=== PATIENT | female | born 1990 | race African-American/Black ===

== ENCOUNTER 2018-04-28 21:39 | Emergency (ER) | payer MEDICAID ==
[~2018-04-28] VITALS: Ht 160 cm; Wt 69.0 kg
[~2018-04-28 21:39] MED LIST: ALBUTEROL INHALER INH; BECL8.7A6 INH; MEDR150D9 IM
[2018-04-28 23:56] LABS: CLARITY URINE CLOUDY (CLEAR); COLOR URINE YELLOW (YELLOW); KETONES URINE NEGATIVE (NEGATIVE); LEUKOCYTE ESTERASE URINE 2+ (NEGATIVE); NITRITE URINE NEGATIVE (NEGATIVE); OCCULT BLOOD URINE 2+ (NEGATIVE); PH URINE 6.5 (4.5-8.0); PROTEIN URINE NEGATIVE (NEGATIVE); SPECIFIC GRAVITY URINE 1.015 (1.005-1.030)
[2018-04-29] MEDS ORDERED: KETOROLAC 60MG/2ML VIAL IM ONE (01:45)
[2018-04-29] MEDS ORDERED: CEFTRIAXONE SODIUM 1 G/VIAL IM ONE (03:15)
[2018-04-29] MEDS ORDERED: MORPHINE SULFATE 10 MG/ML CPJ IM ONE (03:15)
[2018-04-29] MEDS ORDERED: LIDOCAINE HCL/PF 1% 10 MG/ML 5ML VIAL IJ NR (03:30)
[2018-04-29] MEDS ORDERED: LIDOCAINE HCL 1% 20ML VIAL (Pyxis) INJ INFIL ONE (03:30)
[2018-04-29 05:23] VITALS: BP 103/46
== END 2018-04-29 05:24 | disposition home or self-care (01) ==
LOC: ER 22:10
DX: M25.511 Pain in right shoulder (principal); M79.601 Pain in right arm; N30.01 Acute cystitis with hematuria; R30.0 Dysuria; J45.909 Unspecified asthma, uncomplicated; F12.10 Cannabis abuse, uncomplicated; Z91.013 Allergy to seafood; Z88.9 Allergy status to unspecified drugs, medicaments and biological substances; Z79.899 Other long term (current) drug therapy; V03.90XA Pedestrian on foot injured in collision with car, pick-up truck or van, unspecified whether traffic or nontraffic accident, initial encounter; Y93.89 Activity, other specified; Y92.89 Other specified places as the place of occurrence of the external cause; Y99.8 Other external cause status
CPT/HCPCS: 29240; 51702; 73030; 73060; 73090; 81003; 81025; 87086; 96372; 99285; J0696; J1885; J2270; J3490; Z7610; 29125; A4565

== ENCOUNTER 2019-10-24 13:08 | Emergency (ER) | payer MEDICAID ==
[~2019-10-24] VITALS: Ht 162.6 cm; Wt 68.0 kg
[2019-10-24 13:16] VITALS: BP 129/50
[2019-10-24] MEDS ORDERED: ACETAMINOPHEN 325MG TABLET PO STA (16:46)
[2019-10-24] MEDS ORDERED: ONDANSETRON HCL 4MG/2ML INJ IV STA (16:46)
[2019-10-24] MEDS ORDERED: SODIUM CHLORIDE 0.9% 1,000 ML IV ONE (16:46)
[2019-10-24 17:17] LABS: BASOPHILS % 0.7 % (0.0-2.0); EOSINOPHILS % 4.5 % (0.0-5.0); HEMATOCRIT. 37.2 % (36.0-48.0); HEMOGLOBIN. 12.5 g/dL (12.0-16.0); LYMPHOCYTES % 49.1 % (20.0-50.0); MEAN CORPUSCULAR HEMOGLOBIN 30.9 pg (28.0-32.0); MEAN CORPUSCULAR VOLUME 92.1 fL (81.0-99.0); MEAN PLATELET VOLUME 8.4 fl (7.4-10.4); MONOCYTES % 7.3 % (2.0-8.0); NEUTROPHILS % 38.4 % (40.0-76.0); PLATELET 217 x1000/uL (130-400); RED BLOOD CELL COUNT 4.04 mill/uL (4.2-5.4); RED CELL DISTRIBUTION WIDTH 13.7 % (11.6-14.6)
[2019-10-24 17:17] LABS: CLARITY URINE CLEAR (CLEAR); COLOR URINE YELLOW (YELLOW); KETONES URINE NEGATIVE (NEGATIVE); LEUKOCYTE ESTERASE URINE NEGATIVE (NEGATIVE); NITRITE URINE NEGATIVE (NEGATIVE); OCCULT BLOOD URINE NEGATIVE (NEGATIVE); PH URINE 6.5 (4.5-8.0); PROTEIN URINE NEGATIVE (NEGATIVE); SPECIFIC GRAVITY URINE 1.023 (1.005-1.030); UROBILINOGEN URINE 0.2 E.U./dL (0.2-1.0)
[2019-10-24 17:20] LABS: CHLORIDE 108 mEq/L (98-107)
[2019-10-24 17:26] LABS: HCG SCREEN NEGATIVE
== END 2019-10-24 20:00 | disposition home or self-care (01) ==
LOC: ER 13:08
DX: R10.9 Unspecified abdominal pain (principal); R11.2 Nausea with vomiting, unspecified; J45.909 Unspecified asthma, uncomplicated; F12.10 Cannabis abuse, uncomplicated; Z91.013 Allergy to seafood; Z79.899 Other long term (current) drug therapy
CPT/HCPCS: 36415; 80053; 81003; 81025; 83690; 84703; 85025; 99283; J7030

== ENCOUNTER 2021-06-16 21:05 | Emergency (ER) | payer MEDICAID ==
[~2021-06-16] VITALS: Ht 160 cm; Wt 59.0 kg
[2021-06-16 23:36] LABS: BASOPHILS % 0.9 % (0.0-2.0); EOSINOPHILS % 5.1 % (0.0-5.0); HEMATOCRIT. 38.1 % (36.0-48.0); HEMOGLOBIN. 12.9 g/dL (12.0-16.0); LYMPHOCYTES % 59.2 % (20.0-50.0); MEAN CORPUSCULAR HEMOGLOBIN 31.6 pg (28.0-32.0); MEAN CORPUSCULAR VOLUME 93.3 fL (81.0-99.0); MEAN PLATELET VOLUME 8.1 fl (7.4-10.4); MONOCYTES % 7.2 % (2.0-8.0); NEUTROPHILS % 27.6 % (40.0-76.0); PLATELET 261 x1000/uL (130-400); RED BLOOD CELL COUNT 4.08 mill/uL (4.2-5.4); RED CELL DISTRIBUTION WIDTH 13.5 % (11.6-14.6)
[2021-06-16 23:38] LABS: CHLORIDE 108 mEq/L (98-107)
[2021-06-16] MEDS ORDERED: ACETAMINOPHEN 325MG TABLET PO STA (23:57)
[2021-06-16] MEDS ORDERED: ONDANSETRON 4MG ODT PO STA (23:57)
[2021-06-17 00:32] LABS: CLARITY URINE CLOUDY (CLEAR); COLOR URINE YELLOW (YELLOW); KETONES URINE NEGATIVE (NEGATIVE); LEUKOCYTE ESTERASE URINE NEGATIVE (NEGATIVE); NITRITE URINE NEGATIVE (NEGATIVE); OCCULT BLOOD URINE NEGATIVE (NEGATIVE); PH URINE 5.5 (4.5-8.0); PROTEIN URINE NEGATIVE (NEGATIVE)
[2021-06-17] MEDS ORDERED: KETOROLAC 30MG/ML VIAL IM ONE (02:00)
[2021-06-17] MEDS ORDERED: IBUP-2028 MT (02:23)
[2021-06-17 02:36] VITALS: BP 105/62
== END 2021-06-17 02:38 | disposition home or self-care (01) ==
LOC: ER 21:05
DX: N23 Unspecified renal colic (principal); J45.909 Unspecified asthma, uncomplicated; F12.10 Cannabis abuse, uncomplicated; Z91.013 Allergy to seafood; Z79.899 Other long term (current) drug therapy
CPT/HCPCS: 36415; 80053; 81003; 81025; 83690; 85025; 93005; 96372; 99284; J1885; Q0162